=== PATIENT | female | born 1960 | race Caucasian/White ===

== ENCOUNTER → 2021-11-02 12:10 | Outpatient (BNVA) | payer MEDICARE, SELFPAY | PROVIDERS: Visit Provider Nurse Practitioner Family | DX: I10 Essential (primary) hypertension (principal); E55.9 Vitamin D deficiency, unspecified; M79.7 Fibromyalgia; H91.93 Unspecified hearing loss, bilateral; R11.0 Nausea | CPT/HCPCS: 80053; 80061; 82306; 82607; 83735; 84439; 84443; 85025 ==

== ENCOUNTER → 2021-12-04 11:20 | Outpatient (BNVA) | payer MEDICARE, SELFPAY | PROVIDERS: Visit Provider Nurse Practitioner Family | DX: R74.8 Abnormal levels of other serum enzymes (principal) | CPT/HCPCS: 80076 ==

== ENCOUNTER → 2022-05-08 16:52 | Outpatient (BNVA) | payer MEDICARE, SELFPAY | PROVIDERS: Visit Provider Nurse Practitioner Family | DX: E55.9 Vitamin D deficiency, unspecified (principal); I10 Essential (primary) hypertension; L98.9 Disorder of the skin and subcutaneous tissue, unspecified; M79.7 Fibromyalgia; E53.8 Deficiency of other specified B group vitamins; L85.3 Xerosis cutis | CPT/HCPCS: 80053; 80061; 82306; 82607; 85025 ==

== ENCOUNTER → 2022-06-26 08:46 | Outpatient (BNVA) | payer MEDICARE, SELFPAY | PROVIDERS: Visit Provider Nurse Practitioner Family | DX: E53.8 Deficiency of other specified B group vitamins (principal) | CPT/HCPCS: 82607 ==

== ENCOUNTER 2022-07-27 09:48 | Emergency (ER) | payer MEDICARE, SELFPAY ==
[2022-07-27] VITALS (8 sets, daily range): BP systolic 115–154; BP diastolic 53–81; PULSE 75–86; RESP 14–19; TEMP 37.1; O2SAT 96–98; BMI 30.9
--- NOTE | 2022-07-27 09:50 | ECG_ITS ---
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 Measurements Intervals [place] Rate: 82 P: 52 UT: 140 QRS: 47 QRSD: 83 T: 56 QT: 392 QTc: 459 Interpretive Statements SINUS RHYTHM No previous ECG available for comparison Electronically Signed On 07-27-2022 15:41:18 NANOTECHNOLOGY ENGINEERING TECHNICIAN by Jase Ann M.D. [id number]
--- NOTE | 2022-07-27 09:50 | XR_ITS ---
WS: [id number] Exam: XR chest 1V portable [id number] Date/Time of Exam: 07/27/2022 9:50 AM Reason For Exam: cp No priors. The lungs are clear and fully expanded. Normal cardiomediastinal silhouette. Bony structures are inta ct. No pleural effusions. Monitoring leads superimpose the chest. XR/XR chest 1V portable [id number] IMPRESSION: 1. No acute cardiopulmonary finding.
[2022-07-27 10:19] LABS: Basophils # 0.1 10^3/uL (0.0-0.1); Basophils % 1.1 %; Eosinophils # 0.2 10^3/uL (0.0-0.8); Eosinophils % 2.5 %; Hematocrit 42.9 % (37.0-47.0); Hemoglobin 14.8 g/dL (11.5-15.3); Lymphocytes # 2.6 10^3/uL (0.8-4.8); Lymphocytes % 28.8 %; Mean Corpuscular HGB Conc 34.5 g/dL (30.0-36.0); Mean Corpuscular Hemoglobin 34.9 pg (28.0-34.0); Mean Corpuscular Volume 101.2 fl (81-99); Mean Platelet Volume 8.6 fL (7.4-10.4); Monocytes # 0.7 10^3/uL (0.2-0.9); Neutrophils # 5.27 10^3/uL (1.8-7.7); Neutrophils % 59.2 %; Nucleated Red Blood Cells % 0 %; Platelet Count 244 10^3/cmm (130-400); Red Blood Count 4.24 10^6/uL (4.1-5.3); Red Cell Distribution Width 13.7 % (12.1-15.1); White Blood Count 8.9 10^3/uL (4.0-10.0)
[2022-07-27 10:33] LABS: Troponin(5th) Baseline 8 ng/L (0-10)
--- NOTE | 2022-07-27 10:34 | ED_ITS ---
HPI - Chest Pain General: Chief Complaint: Chest Pain Stated Complaint: Chest Pain Time Seen by Provider: 07/27/22 09:56 Source: patient Mode of arrival: EMS History of Present Illness: 62-year-old female presents emergency room co mplaining of chest pressure and dizziness and headache that began a few weeks ago. It worsened today over what her baseline had been. She was given sublingual nitro by EMS as well as 325 of aspirin and states her symptoms did improve she is mildly hypertensive on arrival here denies any shortness of breath she is not had any of the symptoms associated with exertion. No known history of coronary artery disease. She tells me she had a stress test about 12 years ago that was normal. MD complaint: chest discomfort Onset (ago): week(s) Timing of current episode: episodic Prior episodes: Yes Onset: during rest Pain location: left chest Pain radiation: none Severity: moderate Quality: aching and heaviness Relieving factors: nitroglycerin Exacerbating factors: nothing Associated symptoms: Reports nausea; Deny abdominal pain, diaphoresis, dyspnea, fever(s), leg edema, palpitations, sense of impending doom, syncope or vomiting Treatment prior to arrival: aspirin and nitroglycerin Review of Systems Const: Denies: fever(s), chills, fatigue, malaise or diaphoresis ENMT: Denies: throat pain, ear or mastoid pain, nasal discharge or nasal congestion Card: Reports: chest pain; Denies: palpitations, irregular heart rhythm, edema or syncope Resp: Denies: dyspnea GI: Reports: nausea; Denies: abdominal pain or vomiting : Denies: flank pain, difficulty voiding, dysuria, urinary frequency or urinary urgency Skin/Breast: Denies: rash or pruritus PFSH ED PFSH: Medical History Arthritis Fibromyalgia Hypertension IBS (irritable bowel syndrome) Surgical History Hx of section Hx of cholecystectomy Hx of prior ablation treatment Family History Mother , age 57; breast CA Cancer Other Dementia Hypertension Denies family history of Diabetes Clotting disorder Bleeding disorder Family history of premature coronary artery disease Social History (Reviewed 07/28/22 @ 06:57 by EDGARDO Lincoln Smoking and tobacco status: current every day smoker (1/2 PPD) cigarettes Packs smoked per day: 0.5 Years cigarettes smoked: 40 Second hand smoke exposure: No Alcohol intake: current Alcohol intake frequency: 0-2 Drinks per Day Alcohol type: hard liquor Adopted: No Caregiver/support person: Yes (spouse) Lives independently: Yes Household members: spouse Marital status: service: No Current occupational status: retired History of recent travel: No Special to needs: No Agree to transfusion: Yes Physical Exam Const: GENERAL APPEARANCE: cooperative and comfortable ORIENTATION/CONSCIOUSNESS: Yes awake, Yes oriented to person, Yes oriented to place and Yes oriented to time HENMT: COMMON NORMALS: normocephalic, atraumatic and hearing grossly normal bilaterally HEAD & SCALP: normocephalic and atraumatic Resp: COMMON NORMALS: normal respiratory effort, No retractions, No use of accessory muscles and clear to auscultation bilaterally AUSCULTATION: clear to auscultation bilaterally Cardio: COMMON NORMALS: regular rate, regular rhythm and No murmurs present (Cardio) RATE: regular rate RHYTHM: regular rhythm GI: COMMON NORMALS: Soft to palpation and No hepatosplenomegaly present AUSCULTATION: Yes normoactive bowel sounds PALPATION: Yes Soft to palpation, No Tenderness to palpation present (GI), No Guarding due to palpation present (GI) and Yes No hepatosplenomegaly present Extremity: COMMON NORMALS: normal to inspection, capillary refill normal, no clubbing, cyanosis or edema, no calf tenderness and no pedal edema Neuro: SENSORIUM/ORIENTATION: Yes oriented to person, Yes oriented to place and Yes oriented to time Skin: COMMON NORMALS: no rashes or lesions noted GENERAL SKIN EXAM: no rashes or lesions noted Course Vital Signs: Vital signs: Vital Signs Temperature 98.7 F 07/27/22 10:08 Pulse Rate 83 07/27/22 12:30 Respiratory Rate 19 H 07/27/22 12:30 Blood Pressure 119/73 07/27/22 13:00 Pulse Oximetry 96 07/27/22 12:30 Oxygen Delivery Me thod 07/27/22 10:16 MDM - Chest Pain Medical Decision Making EKGs labs and imaging reviewed as found in the chart. No acute changes on EKG no ST elevation. Chest x-ray unremarkable. Patient has had no further symptoms since arriving here troponins do not have a significant delta change. Blood pressure improved. Will discharge home started on baby aspirin daily isosorbide mononitrate 30 mg daily set up for outpatient cardiac Lexiscan sestamibi stress test. Avoid exertional activities return if is further problems. Reviewed with the patient and her . Medical Records I reviewed the patient's medical records. Lab Data I reviewed the patient's lab results. 07/27/22 10:00 07/27/22 10:00 Radiology Impressions Chest X-Ray 07/27/22 09:50 IMPRESSION: 1. No acute cardiopulmonary finding. Laboratory Results WBC 8.9 10^3/uL (4.0-10.0) 07/27/22 10:00 RBC 4.24 10^6/uL (4.1-5.3) 07/27/22 10:00 Hgb 14.8 g/dL (11.5-15.3) 07/27/22 10:00 Hct 42.9 % (37.0-47.0) 07/27/22 10:00 MCV 101.2 fl (81-99) H 07/27/22 10:00 MCH 34.9 pg (28.0-34.0) H 07/27/22 10:00 MCHC 34.5 g/dL (30.0-36.0) 07/27/22 10:00 RDW 13.7 % (12.1-15.1) 07/27/22 10:00 Plt Count 244 10^3/cmm (130-400) 07/27/22 10:00 MPV 8.6 fL (7.4-10.4) 07/27/22 10:00 Neut % (Auto) 59.2 % 07/27/22 10:00 Lymph % (Auto) 28.8 % 07/27/22 10:00 [place] % (Auto) 8.0 % 07/27/22 10:00 Eos % (Auto) 2.5 % 07/27/22 10:00 Baso % (Auto) 1.1 % 07/27/22 10:00 Neut # (Auto) 5.27 10^3/uL (1.8-7.7) 07/27/22 10:00 Lymph # (Auto) 2.6 10^3/uL (0.8-4.8) 07/27/22 10:00 [place] # (Auto) 0.7 10^3/uL (0.2-0.9) 07/27/22 10:00 Eos # (Auto) 0.2 10^3/uL (0.0-0.8) 07/27/22 10:00 Baso # (Auto) 0.1 10^3/uL (0.0-0.1) 07/27/22 10:00 Nucleated RBC % (auto) 0 % 07/27/22 10:00 Nucleated RBCs # 0.0 /100WBC 07/27/22 10:00 Sodium 136 mmol/L (136-145) 07/27/22 10:00 Potassium 4.2 mmol/L (3.5-5.1) 07/27/22 10:00 Chloride 97 mmol/L (98-107) L 07/27/22 10:00 Carbon Dioxide 27 mmol/L (22-29) 07/27/22 10:00 Anion Gap 16.2 (5-19) 07/27/22 10:00 BUN 10 mg/dL (8-23) 07/27/22 10:00 Creatinine 0.7 mg/dL (0.5-0.9) 07/27/22 10:00 GFR Calculation 84.5 mL/min (90-130) L 07/27/22 10:00 Glucose 96 mg/dL (65-115) 07/27/22 10:00 Calculated Osmolality 281 mOsm/kg (285-295) L 07/27/22 10:00 Calcium 9.3 mg/dL (8.5-10.5) 07/27/22 10:00 Total Bilirubin 0.8 mg/dL (0.15-1.2) 07/27/22 10:00 AST 30 U/L (0-32) 07/27/22 10:00 ALT 19 U/L (0-33) 07/27/22 10:00 Alkaline Phosphatase 88 U/L (35-105) 07/27/22 10:00 Troponin T Baseline 8 ng/L (0-10) 07/27/22 10:00 Troponin T 120 Minute 8.67 ng/L (0-10) 07/27/22 11:09 Delta Troponin T 0.67 ABS# (0-10) 07/27/22 11:09 NT-Pro-B Natriuret Pep 40 pg/mL (0-125) 07/27/22 10:00 Total Protein 7.0 g/dL (6.6-8.7) 07/27/22 10:00 Albumin 4.2 g/dL (3.5-5.2) 07/27/22 10:00 Globulin 2.8 g/dL (1.3-4.6) 07/27/22 10:00 Discharge Plan Discharge Patient Disposition: Home Clinical Impression: Atypical chest pain Condition: Stable Prescriptions: New isosorbide mononitrate 30 mg tablet extended release 24 hr 30 mg PO DAILY Qty: 30 0RF aspirin 81 mg tablet,delayed release (DR/EC) 81 mg PO DAILY Qty: 30 0RF No Action mupirocin 2 % ointment 1 applic topical BID 10 Days Qty: 22 0RF promethazine 25 mg tablet 25 mg PO TID PRN (Reason: nausea and vomiting) Qty: 30 2RF imiquimod 5 % cream in packet 1 applic topical ONCE Qty: 24 1RF Rx Instructions: apply thin film to Saturday-Saturday (off weekends) for 3 weeks. cyanocobalamin (vitamin B-12) 1,000 mcg/mL solution 1,000 mcg SUBCUT .monthly Qty: 4 1RF acetaminophen-codeine 300-30 mg tablet 1 tab PO Q8H PRN (Reason: pain) Qty: 30 0RF ibuprofen 800 mg tablet 800 mg PO Q8H PRN (Reason: pain) Qty: 30 2RF alprazolam [Xanax] 0.25 mg tablet 0.25 mg PO DAILY PRN (Reason: anxiety) Qty: 30 0RF dicyclomine 20 mg tablet 20 mg PO TID Qty: 90 4RF albuterol sulfate [ProAir HFA] 90 mcg/actuation HFA aerosol inhaler 2 puff inhalation Q6H PRN (Reason: shortness of breath or wheezing) Qty: 8.5 2RF cholecalciferol (vitamin D3) 50 mcg (2,000 unit) capsule 50 mcg PO DAILY Qty: 90 1RF Discharge Orders: Discharge ED (Routine); Ordered 07/27/22 Ordered By: Lavelle Ortiz Referrals: Dorcas Truong MD [Primary Care Provider] - Discharge Diet: Usual diet Discharge Activity: Limit activity as instructed Patient Instructions: Opioid Safety, Pain Management Activity Restrictions/Additional Instructions: You were seen today for chest pain. Your EKGs and heart enzymes were negative. You will be discharged home on isosorbide mononitrate to take 1 tablet daily this will help with blood pressure control additionally recommend that you take a baby aspirin daily. Case management make arrangements for an outpatient stress test. Coding Level of Care Code ED Traffic Workforce Representative for Kiran Jeong
[2022-07-27 10:43] LABS: Alanine Aminotransferase 19 U/L (0-33); Albumin Level 4.2 g/dL (3.5-5.2); Alkaline Phosphatase 88 U/L (35-105); Blood Urea Nitrogen 10 mg/dL (8-23); Calcium 9.3 mg/dL (8.5-10.5); Carbon Dioxide 27 mmol/L (22-29); Chloride 97 mmol/L (98-107); Globulin 2.8 g/dL (1.3-4.6); Glomerular Filtration Rate 84.5 mL/min (90-130); Glucose 96 mg/dL (65-115); NT Pro B Type Natriuretic Pept 40 pg/mL (0-125); Osmolality Calculated 281 mOsm/kg (285-295); Sodium 136 mmol/L (136-145); Total Bilirubin 0.8 mg/dL (0.15-1.2)
[2022-07-27 10:45] LABS: Anion Gap 16.2 (5-19); Aspartate Amino Transferase 30 U/L (0-32); Potassium 4.2 mmol/L (3.5-5.1)
[2022-07-27 11:37] LABS: Troponin 5 2HR 8.67 ng/L (0-10)
--- NOTE | 2022-07-27 11:50 | ECG_ITS ---
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 Measurements Intervals [place] Rate: 68 P: 61 [place]: 144 QRS: 52 QRSD: 88 T: 55 QT: 422 QTc: 449 Interpretive Statements SINUS RHYTHM Compared to ECG 07/27/2022 10:04:55 No significant changes Electronically Signed On 07-27-2022 15:47:14 RESEARCH DEVELOPMENT MANAGER by Jase Ann M.D. [id number]
[2022-07-27 11:57] LABS: Troponin 5 2HR Delta 0.67 ABS# (0-10)
--- NOTE | 2022-07-31 11:44 | DCPLANNER ---
regulatory process manager had message to schedule an outpatient stress test for patient. regulatory process manager faxed signed order to centralized scheduling, who will call patient with appointment information. regulatory process manager also sent patients primary care physician that the test was ordered by the ER physician.
== END 2022-07-27 13:38 | disposition home or self-care (01) ==
PROVIDERS: Physician Assistant; Emergency Provider Family Medicine; PCP Family Medicine
DX: R07.89 Other chest pain (principal); I10 Essential (primary) hypertension; F17.210 Nicotine dependence, cigarettes, uncomplicated
CPT/HCPCS: 36415; 71045; 80053; 83880; 84484; 85025; 93005; 99285

== ENCOUNTER → 2022-11-16 10:07 | Outpatient (BNVA) | payer MEDICARE, SELFPAY | PROVIDERS: PCP Family Medicine; Visit Provider Student in an Organized Health Care Education/Training Program | DX: M70.61 Trochanteric bursitis, right hip (principal); M17.0 Bilateral primary osteoarthritis of knee; Z71.89 Other specified counseling | CPT/HCPCS: 20610; 73502; 73560; 73565; 99204; J3301; J3490 ==

== ENCOUNTER 2023-03-25 12:41 | Emergency (ER) | payer MEDICARE, SELFPAY ==
[2023-03-25 12:50] VITALS: BMI 30.5
--- NOTE | 2023-03-25 15:17 | W.ED.EXTPRO ---
HPI - Extremity Problem General: Chief complaint: Extremity Injury, Lower Stated complaint: Right & Left foot pain Time Seen by Provider: 03/25/23 13:51 Source: patient Mode of arrival: ambulatory Limitations: no limitations History of Present Illness: Patient is a very nice 62-year-old female presents to ED today with complaint of bilateral foot pain more so on the right. She states she began noticing right foot pain approximately 3 weeks ago. She admittedly has been wearing very poor foot wear and often going barefoot for 8+ hours a day. She complains of pain mainly to the dorsal aspect of her midfoot. She has not noticed any swelling to the extremities. She has not noticed any color or temperature changes. She denies numbness, tingling, loss of sensation. She is not having any plantar or heel discomfort. Has not had any known injury or trauma. She states left foot began bothering her yesterday. Pain is significantly worse with weightbearing. MD Complaint: extremity pain Onset (ago): week(s) Pain Consistency: constant Location: left, right and lower extremity Severity scale (1-10): >10 Radiation: none Relieving factors: nothing Exacerbating factors: weight bearing, walking and palpation Associated symptoms: Reports no associated symptoms Review of Systems Musc: Reports: extremity pain (bilateral foot pain); Denies: neck pain, back pain, extremity swelling, joint pain, joint swelling, joint redness, joint warmth, joint stiffness, muscle cramps or muscle weakness Neuro: Denies: numbness in extremities, weakness in extremities or sensory changes PFSH ED PFSH: Medical History (Updated 03/25/23 @ 16:21 by LISETTE Melchor) Arthritis Fibromyalgia Hypertension IBS (irritable bowel syndrome) Surgical History (Updated 11/16/22 @ 09:59 by Maribel Campos LPN) Hx of section Hx of cholecystectomy Hx of prior ablation treatment Family History Mother , age 57; breast CA Cancer Other Dementia Hypertension Denies family history of Diabetes Clotting disorder Bleeding disorder Family history of premature coronary artery disease Social History Smoking and tobacco status: current every day smoker (1/2 PPD) cigarettes Packs smoked per day: 0.5 Years cigarettes smoked: 40 Second hand smoke exposure: No Alcohol intake: current Alcohol intake frequency: 0-2 Drinks per Day Alcohol type: hard liquor Substance/Drug Use: never Adopted: No Caregiver/support person: Yes (spouse) Lives independently: Yes Household members: spouse Marital status: service: No Current occupational status: retired Special to needs: No Agree to transfusion: Yes Physical Exam Const: COMMON NORMALS: no acute distress, patient oriented x3, no limitations and alert GENERAL APPEARANCE: cooperative NUTRITIONAL APPEARANCE: overweight ORIENTATION/CONSCIOUSNESS: Yes awake, Yes oriented to person, Yes oriented to place and Yes oriented to time Extremity: COMMON NORMALS: full ROM, capillary refill normal, no joint enlargement, no clubbing, cyanosis or edema, no calf tenderness and no pedal edema GENERAL: Yes normal exam except as noted RIGHT LOWER EXTREMITY: Yes foot & digits Right foot and digits: Yes inspection (normal), Yes palpation (TTP dorsal midfoot into longitudinal arch; no plantar pain), Yes ROM and Yes neurovascular exam (normal) LEFT LOWER EXTREMITY: Yes foot & digits (very mild dorsal tenderness) Neuro: COMMON NORMALS: patient oriented x3, moves all extremities, no focal motor deficits and no sensory deficits noted SENSORIUM/ORIENTATION: Yes alert, Yes oriented to person, Yes oriented to place and Yes oriented to time Skin: COMMON NORMALS: no rashes or lesions noted GENERAL SKIN EXAM: no rashes or lesions noted TRAUMA: no lacerations or abrasions MDM - Extremity (Nontraumatic) Medical Decision Making Patient presents to the ED today with a complaint of a 3-week history of right foot pain that is progressively worsening and now starting with left foot pain yesterday. She admitting has been wearing very poor footwear and often goes barefoot on her feet for 8+ hours a day. Patient denies any swelling to the feet. She is tender along the dorsal aspect of the feet (right foot much more tender than left) and into her longitudinal arches. XR of the right foot showing nothing acute but she does have some degenerative changes and spurring to her dorsal midfoot that could be contributory. History is not consistent with any type of acute injury to explain her midfoot pain. I have a low suspicion for arthritis or any type of Charcot changes although early changes can be missed with plain films. Possibly a tendinopathy. Less likely infectious or inflammatory such as RA or gout. Certainly lifestyle/lack of supportive footwear could be contributing. Recommended NSAIDs and steroids along with orthotic inserts discussed possibly podiatry follow-up. She states she is allergic to all steroids so wants to forego these. Lab Data Radiology Impressions Foot X-Ray 03/25/23 15:31 IMPRESSION: No acute bony abnormalities. Discharge Plan Discharge Patient Disposition: Home Clinical Impression: Bilateral foot pain Condition: Stable Prescriptions: No Action isosorbide mononitrate 30 mg tablet extended release 24 hr 30 mg PO DAILY Qty: 30 4RF acetaminophen-codeine 300-30 mg tablet 1 tab PO BID PRN (Reason: pain) Qty: 60 2RF promethazine 25 mg tablet 25 mg PO TID PRN (Reason: sedation) Qty: 30 3RF ergocalciferol (vitamin D2) 1,250 mcg (50,000 unit) capsule 1,250 mcg PO .weekly Qty: 12 2RF cholecalciferol (vitamin D3) 50 mcg (2,000 unit) capsule 50 mcg PO DAILY Qty: 90 1RF cyanocobalamin (vitamin B-12) 1,000 mcg/mL solution See Rx Instructions .ROUTE .COMPLEX Qty: 4 1RF Dose Instruction: INJECT 1000 mcg SUBCUTANEOUSLY monthly Rx Instructions: INJECT 1000 mcg SUBCUTANEOUSLY monthly alprazolam [Xanax] 0.25 mg tablet 0.25 mg PO DAILY PRN (Reason: anxiety) Qty: 30 0RF ibuprofen 800 mg tablet See Rx Instructions .ROUTE .COMPLEX Qty: 30 2RF Dose Instruction: TAKE ONE TABLET BY MOUTH EVERY 8 HOURS NEEDED FOR PAIN Rx Instructions: TAKE ONE TABLET BY MOUTH EVERY 8 HOURS NEEDED FOR PAIN (DME) BD Luer-Mac Syringe 3 mL 25 gauge x 1 syringe See Rx Instructions .ROUTE .COMPLEX Qty: 1 3RF Dose Instruction: USE DIRECTED ONCE WEEKLY Rx Instructions: USE DIRECTED ONCE WEEKLY aspirin 81 mg tablet,delayed release (DR/EC) 81 mg PO DAILY Qty: 30 0RF Discharge Orders: Discharge ED (Routine); Ordered 03/25/23 Ordered By: Adilene White Referrals: Dorcas Truong MD [Primary Care Provider] - Patient Instructions: Pain Management Activity Restrictions/Additional Instructions: Your x-rays today were negative for any signs of acute fracture or degenerative changes. Follow-up with podiatry as discussed. You may apply ice as needed, and you may take [id number] Tylenol or anti-inflammatories for pain. Coding Level of Care Code ED Grinder Operator Surface Tool for Kiran Jeong
--- NOTE | 2023-03-25 15:31 | XRR_ITS ---
PROCEDURE INFORMATION: Exam: XR Right Foot Exam date and time: 03/25/2023 3:41 PM Age: 62 years old Clinical indication: Pain; Foot; Right TECHNIQUE: Imaging protocol: Radiologic exam of the right foot. Views: 3 or more views. COMPARISON: No relevant prior studies available. FINDINGS: Bones/joints: Mild degenerative changes 1st MTP joint. Small plantar spur arising the calcaneus. Mild degenerative changes with spurring along the dorsal aspect of the midfoot. Remaining osseous structures are unremarkable. No fracture, dislocation or malalignment. Soft tissues: Normal. XR/XR foot RT min 3V* [id number] IMPRESSION: No acute bony abnormalities.
[2023-03-25] MEDS: ketorolac 30 mg/mL INJ IM (16:20)
[2023-03-25] MEDS: HYDROcodone-acetaminophen 5-325 mg Tablet 1 TAB PO (16:27)
--- NOTE | 2023-03-26 08:37 | DCPLANNER ---
Addendum entered by Julia Blevins 04/03/23 13:19: Patient has a follow up appointment scheduled for Saturday, May 06, 2023 at 10:[address] [facility] at [facility]. Original Note: racing manager had message to schedule a follow up appointment for patient with podiatry. racing manager sent patients information to the front office staff at podiatry. Patients information will be printed and reviewed. Clinic will call patient with appointment information.
== END 2023-03-25 16:42 | disposition home or self-care (01) ==
PROVIDERS: Emergency Provider Physician Assistant; PCP Family Medicine
DX: M79.671 Pain in right foot (principal); M79.672 Pain in left foot; Z79.82 Long term (current) use of aspirin; I10 Essential (primary) hypertension; F17.210 Nicotine dependence, cigarettes, uncomplicated
CPT/HCPCS: 73630; 96372; 99284; J1885

== ENCOUNTER → 2023-05-06 10:20 | Outpatient (BNVA) | payer MEDICARE, SELFPAY | PROVIDERS: PCP Family Medicine; Visit Provider Podiatrist Foot & Ankle Surgery | DX: M76.71 Peroneal tendinitis, right leg; G57.61 Lesion of plantar nerve, right lower limb | CPT/HCPCS: 99203 ==

== ENCOUNTER → 2023-05-13 12:11 | Outpatient (BNVA) | payer MEDICARE, SELFPAY | PROVIDERS: PCP Family Medicine; Referring Provider Family Medicine; Visit Provider Internal Medicine | DX: R07.9 Chest pain, unspecified (principal); I10 Essential (primary) hypertension; R00.2 Palpitations; F17.210 Nicotine dependence, cigarettes, uncomplicated | CPT/HCPCS: 93005; 99204 ==

== ENCOUNTER 2023-05-21 06:25 | Outpatient (CLI) | payer MEDICARE, SELFPAY ==
--- NOTE | 2023-05-21 | ECG_ITS ---
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 Interpretive Statements LEXISCAN: Procedure: At the baseline, the blood pressure was 171/72 mmHg with a heart rate of 77 bpm. The electrocardiogram showed normal sinus rhythm, normal axis with normal ST and T's. The Lexiscan was infused over a period of 20 seconds. A total of 0.4 mg of Lexiscan was infused. The stress phase was continued for a total of 5 minutes. Heart rate was at the end of stress phase was 90 bpm and a blood pressure of 179/76 mmHg. The EKG at the peak infusion revealed normal sinus rhythm with no significant ST-T wave changes. Sestamibi was injected 20 seconds after the Lexiscan infusion. Blood pressure at the end of recovery phase was 160/78 mmHg with a heart rate of 90 bpm. PVCs seen during recovery. Conclusion: 1. Normal EKG response to Lexiscan infusion 2. No Lexiscan induced chest pain or cardiac arrhythmia. 3. Normal blood pressure and heart rate response. 4. Sestamibi/sestamibi perfusion scan pending; see separate report. Electronically Signed On 05-30-2023 12:53:50 CDT by Jose Alberto Oneal M.D. [id number]
[2023-05-21 06:54] VITALS: BMI 30.2
--- NOTE | 2023-05-21 07:03 | NMCV_ITS ---
NM brittney perf SPECT r/s* [id number] Speakmontana, Twila Age: 62 Gender: F : 1960 Exam Date: 05/21/2023 07:03 Ordering Phys: Jose Alberto Oneal M.D ([email or web address]) Technologist: LANDON Moore Exam Location: [facility] Indications: CHEST PAIN, SHORTNESS OF BREATH STRESS TEST Please see separate stress test report in [facility]any for full findings IMAGE PROTOCOL Rest/Stress 1 Lexiscan Day Radiopharmaceutical Dose (mCi) Administration Site Administered by Rest: Tc-99m 10.9 IV Manoj Penny, ACCOUNTING OFFICER Sestamibi Stress:Tc-99m 32.9 IV Manoj Penny, ACCOUNTING OFFICER Sestamibi Rest: 21-May-2023 60 Discovery 630 Stress: 21-May-2023 30 Discovery 630 0.4mg Lexiscan. Images obtained in supine and prone position. SPECT RESULTS Technical Quality: Excellent Raw Data Analysis: Normal Image Corrections: No attenuation or motion correction applied Summed Stress Score: 1 Summed Rest Score: 0 Summed Difference Score: 1 PERFUSION FINDINGS SPECT images demonstrate homogeneous tracer distribution throughout the myocardium. FUNCTIONAL RESULTS (calculated via Gated SPECT) Stress Image LV EF (%): 72 Stress EDV (mL):106 TID: 0.9 Stress ESV (mL):30 FUNCTIONAL FINDINGS: There is normal left ventricular systolic function. IMPRESSIONS 1. Normal myocardial perfusion imaging with no evidence of ischemia 2. LV systolic function is normal. Jose Alberto Oneal MD (Electronically Signed) Final Date: 21 May 2023 14:43 S
[2023-05-21] MEDS: regadenoson 0.4 Mg/5 ml Syringe IVP (08:40)
[2023-05-21 08:55] VITALS: BP 163/84; PULSE 91
== END 2023-05-21 06:26 | disposition home or self-care (01) ==
PROVIDERS: PCP Family Medicine; Visit Provider Internal Medicine
DX: R07.9 Chest pain, unspecified (principal); R06.02 Shortness of breath
CPT/HCPCS: 36415; 78452; 93017; 96374; A9500; J2785

== ENCOUNTER → 2023-07-16 15:52 | Outpatient (BNVA) | payer MEDICARE, SELFPAY | PROVIDERS: PCP Family Medicine; Visit Provider Family Medicine | DX: J02.9 Acute pharyngitis, unspecified (principal); H66.001 Acute suppurative otitis media without spontaneous rupture of ear drum, right ear; F32.1 Major depressive disorder, single episode, moderate | CPT/HCPCS: 87071; 87880 ==

== ENCOUNTER 2025-07-14 10:24 | Emergency (ER) | payer MEDICARE, SELFPAY ==
[2025-07-14 10:40] VITALS: BP 120/67; PULSE 75; RESP 17; TEMP 37.3; O2SAT 99; BMI 31.7
--- NOTE | 2025-07-14 11:06 | XR_ITS ---
WS: [id number] XR foot RT min 3V* [id number] REASON FOR EXAM: injury FINDINGS: The examination is unchanged compared to 03/25/2023. No acute fracture. Old healed fracture of the fifth proximal phalange. Joint spaces of the forefoot, midfoot, and hindfoot are intact and well preserved. XR/XR foot RT min 3V* [id number] IMPRESSION: No acute bone or joint abnormality.
--- NOTE | 2025-07-14 11:07 | ED_ITS ---
HPI - Extremity Problem General: Chief complaint: Extremity Problem,Nontraumatic Stated complaint: R foot Pain Time Seen by Provider: 07/14/25 11:06 Source: patient Mode of arrival: ambulatory Limitations: no limitations History of Present Illness: 65-year-old female who states she has be en having right foot pain has been going on for couple weeks. States she had seen her PCP last week diagnosed plantar fasciitis and placed in a boot. She states this morning she had noticed some erythema to her right lateral foot with increased pain. She denies any specific injury denies any fever rates her pain a 3 out of 10 currently its much improved with rest Related Data Previous Rx's ?Medication ?Instructions ?Recorded aspirin 81 mg tablet,delayed 81 mg PO DAILY #30 tabs 1 09/27/21 release chlorpheniramine 4 1 tab PO Q6H PRN allergy sym ptoms 07/16/23 mg-phenylephrine 10 mg-DM 10 mg #30 tabs tablet (Ed A-Hist DM) acetaminophen 300 mg-codeine 30 mg 1 tab PO BID PRN pa in #60 tabs 03/19/24 tablet alprazolam 0.25 mg tablet (Xanax) 0.25 mg PO DAILY PRN anxiety #30 03/19/24 tabs amlodipine 5 mg tablet 5 mg PO DAILY #90 tabs 03/19 cyanocobalamin (vitamin B-12) See Rx Instructions .Rou te 03/19/24 1,000 mcg/mL injection solution .COMPLEX #4 mL ergocalciferol (vitamin D2) 1,250 1,250 mcg PO .weekly #12 caps 03/19/24 mcg (50,000 unit) capsule ibuprofen 800 mg tablet See Rx Instructions .Route 0 03/19/24 .COMPLEX #30 tabs promethazine 25 mg tablet 25 mg PO TID PRN sedation #3 0 tabs 03/19/24 sertraline 100 mg tablet 100 mg PO DAILY #30 tabs syringe with needle 3 mL 25 gauge #1 ea 03/19/24 x 1 (BD Luer-Mac Syringe) cephalexin 500 mg capsule 500 mg PO TID 7 days #21 cap s 07/14/25 hydrocodone 5 mg-acetaminophen 325 1 tab PO Q8H PRN pa in #14 tabs 07/14/25 mg tablet Allergies Allergy/AdvReac Type Severity Reaction Status Date / Time methylprednisolone Allergy Intermediate hives Verified 07/16/23 15:07 Review of Systems Musc: Reports: extremity pain PFSH ED PFSH: Medical History Hypertension Fibromyalgia IBS (irritable bowel syndrome) Arthritis Surgical History Hx of section Hx of prior ablation treatment Hx of cholecystectomy Family History Mother , age 57; breast CA Cancer Other Dementia Hypertension Denies family history of Diabetes Clotting disorder Bleeding disorder Family history of premature coronary artery disease Social History Smoking and tobacco/nicotine status: never used tobacco/nicotine Second hand smoke exposure: No Alcohol intake: current Alcohol intake frequency: 0-2 Drinks per Day Alcohol type: hard liquor Substance/Drug Use: never Adopted: No Caregiver/support person: Yes (spouse) Lives independently: Yes Household members: spouse Marital status: service: No Current occupational status: retired Special ot needs: No Agree to transfusion: Yes Physical Exam Const: COMMON NORMALS: no acute distress, patient oriented x3 and healthy appearing HENMT: COMMON NORMALS: normocephalic and atraumatic HEAD & SCALP: normocephalic and atraumatic Neck/C-Spine: COMMON NORMALS: full ROM and supple Chest: COMMONS NORMALS: normal inspection of the chest Resp: COMMON NORMALS: normal respiratory effort Extremity: NARRATIVE EXTREMITY EXAM: Tenderness noted to right lateral foot along with plantar surface mild erythema no warmth to touch Neuro: COMMON NORMALS: patient oriented x3, moves all extremities and no focal motor deficits Psych: COMMON NORMALS: mental status grossly normal, Normal thought process present and cooperative THOUGHT PROCESS: Normal thought process present Skin: COMMON NORMALS: no rashes or lesions noted and no wounds GENERAL SKIN EXAM: no rashes or lesions noted Course Vital Signs: Vital signs: Vital Signs Temperature 99.2 F 07/14/25 10:40 Pulse Rate 75 07/14/25 10:40 Respiratory Rate 17 07/14/25 10:40 Blood Pressure 120/67 07/14/25 10:40 Pulse Oximetry 99 07/14/25 10:40 Oxygen Delivery Me thod Room Air 07/14/25 10:40 MDM - Extremity (Nontraumatic) Medical Decision Making 65-year-old female's been having right foot pain. X-ray here is normal she has no signs of osteomyelitis. No injuries no signs of fracture. Likely has plantar fasciitis she does have some erythema to her right lateral foot this could be from rubbing from the boot she is wearing or mild cellulitis. Will start her on Keflex will prescribe her pain medicine will get her follow-up with podiatry she is return if worsening she understands agrees to plan. Medical Records I reviewed the patient's medical records. Lab Data Radiology Impressions Foot X-Ray 07/14/25 11:06 IMPRESSION: No acute bone or joint abnormality. All radiology interpretation(s) finalized by discharge Discharge Plan Discharge Patient Disposition: Home Clinical Impression: Pain in right foot Condition: Stable Prescriptions: New cephalexin 500 mg capsule 500 mg PO TID 7 Days Qty: 21 0RF hydrocodone-acetaminophen 5-325 mg tablet 1 tab PO Q8H PRN (Reason: pain) Qty: 14 0RF No Action Ed A-Hist DM 4-10-10 mg tablet 1 tab PO Q6H PRN (Reason: allergy symptoms) Qty: 30 0RF amlodipine 5 mg tablet 5 mg PO DAILY Qty: 90 3RF acetaminophen-codeine 300-30 mg tablet 1 tab PO BID PRN (Reason: pain) Qty: 60 2RF alprazolam [Xanax] 0.25 mg tablet 0.25 mg PO DAILY PRN (Reason: anxiety) Qty: 30 2RF cyanocobalamin (vitamin B-12) 1,000 mcg/mL solution See Rx Instructions .ROUTE .COMPLEX Qty: 4 1RF Dose Instruction: INJECT 1000 mcg SUBCUTANEOUSLY monthly Rx Instructions: INJECT 1000 mcg SUBCUTANEOUSLY monthly ergocalciferol (vitamin D2) 1,250 mcg (50,000 unit) capsule 1,250 mcg PO .weekly Qty: 12 2RF ibuprofen 800 mg tablet See Rx Instructions .ROUTE .COMPLEX Qty: 30 3RF Dose Instruction: TAKE ONE TABLET BY MOUTH EVERY 8 HOURS NEEDED FOR PAIN Rx Instructions: TAKE ONE TABLET BY MOUTH EVERY 8 HOURS NEEDED FOR PAIN promethazine 25 mg tablet 25 mg PO TID PRN (Reason: sedation) Qty: 30 3RF sertraline 100 mg tablet 100 mg PO DAILY Qty: 30 3RF (DME) BD Luer-Mac Syringe 3 mL 25 gauge x 1 syringe See Rx Instructions .ROUTE .COMPLEX Qty: 1 3RF Dose Instruction: USE DIRECTED ONCE WEEKLY Rx Instructions: USE DIRECTED ONCE WEEKLY aspirin 81 mg tablet,delayed release (DR/EC) 81 mg PO DAILY Qty: 30 0RF Discharge Orders: Discharge ED (Routine); Ordered 07/14/25 Ordered By: Matthew Goff Referrals: Davy Theodore DPM [Physician, Podiatry] - 4-7 days Discharge Diet: Advance as tolerated Discharge Activity: Resume usual activity Patient Instructions: Plantar Fasciitis (ED), Metatarsalgia (DC) Print Language: [place] Coding Level of Care Code ED Instrumentation Tech for Kiran Jeong
[2025-07-14] MEDS: HYDROcodone-acetaminophen 7.5-325 mg Tablet 1 TAB PO (11:22)
[2025-07-14 12:07] VITALS: BP 122/82; PULSE 70; O2SAT 99
--- NOTE | 2025-07-15 07:35 | DCPLANNER ---
messaged podiatry for er f/u
== END 2025-07-14 12:08 | disposition home or self-care (01) ==
PROVIDERS: Emergency Provider Emergency Medicine
DX: M79.671 Pain in right foot (principal); Z79.82 Long term (current) use of aspirin; I10 Essential (primary) hypertension
CPT/HCPCS: 73630; 99283; J9999